=== PATIENT | female | born 1960 | race Two or more races ===

== ENCOUNTER 2024-07-31 01:53 | Emergency (ER) | payer OTHER ==
[~2024-07-31] VITALS: Ht 167.6 cm; Wt 94.3 kg
[2024-07-31 01:53] VITALS: BP 118/46; RESP 20; O2SAT 96
[2024-07-31 02:11] VITALS: PULSE 96
[2024-07-31 02:34] LABS: Basophils # (auto) 0 10 ^3/uL (0-0.2); Basophils % (auto) 0.5 % (0.0-2.0); Eosinophils # (auto) 0.1 10 ^3/uL (0-0.8); Eosinophils % (auto) 1.2 % (0.0-7.0); Hematocrit 40.6 % (36.0-46.0); Hemoglobin 13.8 g/dL (12.2-16.2); Lymphocytes # (auto) 3.8 10 ^3/uL (0.4-5.4); Lymphocytes % (auto) 39.6 % (10.0-50.0); Mean Corpuscular Hemoglobin 33.7 pg (28.0-32.0); Mean Corpuscular Volume 99.2 fL (80.0-100.0); Monocytes # (auto) 0.6 10 ^3/uL (0-1.3); Monocytes % (auto) 6.8 % (0.0-12.0); Neutrophils # (auto) 4.9 10 ^3/uL (1.6-8.6); Neutrophils % (auto) 51.9 % (37.0-80.0); Nucleated Red Blood Cells % 0.1 %; Platelet Count (auto) 312 10^3/uL (140-450); White Blood Cell 9.5 10^3/uL (4.4-10.8)
[2024-07-31 02:46] LABS: Alanine Aminotransferase 12 U/L (7-40); Albumin 4.5 g/dL (3.2-4.8); Alkaline Phosphatase 115 U/L (46-116); Anion Gap 13 (5-15); Bilirubin, Total 0.4 mg/dL (0.2-1.0); Calcium 10.2 mg/dL (8.7-10.4); Chloride 105 mmol/L (98-107); Magnesium 2.2 mg/dL (1.6-2.6); Sodium 138 mmol/L (136-145); Total Protein 7.6 g/dL (5.7-8.2)
[2024-07-31 02:49] LABS: Aspartate Aminotransferase < 8 U/L (13-40); Carbon Dioxide 20 mmol/L (20-31); Glucose 119 mg/dL (74-106)
--- NOTE | 2024-07-31 02:59 | DVH ---
Examination: HWOCT CLINICAL INDICATION: vertigo COMPARISON: None. CONTRAST USED: None. TECHNIQUE: The examination was performed obtaining 5 mm slices without contrast. CT scan was done a ccording to ALARA (As Low as Reasonably Achievable). Multiplanar reconstructions were obtained. FINDINGS: SUPRATENTORIAL BRAIN: Cerebral Hemispheres: Gliotic area in the left temporal lobe. There is no midline shift or mass effect, intra- or extra-axial fluid collections or hemorrhage. Prominent sulcal-gyral pattern and cisternal spaces in both cerebral hemispheres suggestive of cerebr al atrophy, likely age related. Periventricular White Matter/Basal Ganglia: No abnormal areas of altered attenuation within the dale ventricular white matter or basal ganglia. POSTERIOR FOSSA: The brainstem is unremarkable. Small gliotic area in the left cerebellar hemispher e anteromedially. Prominent cerebellar folia suggestive of cerebellar atrophy, likely age related. VENTRICULAR SYSTEM: The ventricular system is normal in size. Ventricular shunt drainage tube noted on the right side traversing right parietal bone, right parietal lobe parenchyma, with its tip in th e body of right lateral ventricle. There is no evidence of hydrocephalus or transependymal flow of c erebrospinal fluid. SKULL BASE AND PARASELLAR REGION: The skull base is normal, with no parasellar masses or abnormaliti es identified. CALVARIUM AND SCALP REGION: Small osteoma of approximate size 9 x 6 mm noted over the outer table of frontal bone on the right side. Hyperostosis frontalis interna bilaterally. Old craniectomy defect noted in occipital bone on the left side. Old left frontal temporoparietal craniotomy defect, along with postoperative changes noted. Please correlate with operative history. PARANASAL SINUSES: No significant inflammatory changes are identified in the visualized paranasal si nuses. IMPRESSION: 1. Gliotic area in the left temporal lobe and a small gliotic area in the left cerebellar hemisphere anteromedially. 2. No evidence of acute large vessel territorial ischemic infarction or intraparenchymal hematoma in current study. 3. Chronic and/or ancillary findings as described above. Advised further evaluation with MRI brain without contrast, if clinically indicated. Electronically Signed 07/31/2024 02:58 Mery Trevizo
[2024-07-31 03:26] LABS: Blood Urea Nitrogen 22 mg/dL (9-23)
--- NOTE | 2024-07-31 03:54 | ED.PDOC ---
HPI (NEURO) HPI Comments A 63 year old female presents to the ED with a chief complaint of dizziness onset 4 days. Daughter states the patient has a past medical history of a brain tumor, was partially removed about 6 years ago. Patient noticed dizziness has worsen, as well as headache, LT sided facial pain. No other symptoms or modifying factors present at this time. Chief Complaint: Dizziness Time Seen by MD: 03:37 Reviewed Notes: Medications, Allergies Information Source: Patient, Relative (Child) Mode of Arrival: Ambulatory Severity: Moderate Headache Severity: Moderate Timing: Days Duration: Since onset Prehospital treatment: None Headache Quality: Sharp Symptoms: Other (dizziness) History of: Other (rah tumor) Associated Signs and Symptoms: Headache Past Medical History Past Medical History (Other): Brain tumor Surgical History (Other): Brain surgery TARGET [employer]TER History: Unknown Family History Family History: Unknown Social History Smoker: Non-Smoker Alcohol: Denies ETOH Use Drugs: Denies Drug Use Lives In: Home Constitutional: denies: chills, diaphoresis, fatigue, fever, malaise, sweats, weakness, others EENTM: denies: blurred vision, double vision, ear bleeding, ear discharge, ear drainage, ear pain, ear ringing, eye pain, eye redness, hearing loss, mouth pain, mouth swelling, nasal discharge, nose bleeding, nose congestion, nose pain, photophobia, tearing, throat pain, throat swelling, voice changes, others Respiratory: denies: cough, hemoptysis, orthopnea, SOB at rest, shortness of breath, SOB with excertion, stridor, wheezing, others Cardiovascular: denies: chest pain, dizzy spells, diaphoresis, Dyspnea on exertion, edema, irregular heart beat, left arm pain, lightheadedness, palpitations, PND, syncope, others Gastrointestinal: denies: abdomen distended, abdominal pain, blood streaked bowels, constipated, diarrhea, dysphagia, difficulty swallowing, hematemesis, melena, nausea, poor appetite, poor fluid intake, rectal bleeding, rectal pain, vomiting, others Genitourinary: denies: abnormal vagina bleeding, burning, dyspareunia, dysuria, flank pain, frequency, hematuria, incontinence, pain, , vagina discharge, urgency, others Neurological: reports: dizziness, headache, others (LT side facial pain); denies: fainting, left sided numbness, left sided weakness, numbness, paresthesia, pre-existing deficit, right sided numbness, right sided weakness, seizure, speech problems, tingling, tremors, weakness Musculoskeletal: denies: back pain, gout, joint pain, joint swelling, muscle pain, muscle stiffness, neck pain, others Integumetry: denies: bruises, change in color, change in hair/nails, dryness, laceration, lesions, lumps, rash, wounds, others Allergic/Immunocompromised: denies: Difficulty Healing, Frequent Infections, Hives, Itching, others Hematologic/Lymphatic: denies: anemia, blood clots, easy bleeding, easy bruising, swollen glands, others Endocrine: denies: excessive hunger, excessive sweating, excessive thirst, excessive urination, flushing, intolerance to cold, intolerance to heat, unexplained weight gain, unexplained weight loss, others Psychiatric: denies: anxiety, bipolar disorder, depression, hopeless, panic disorder, schizophrenia, sleepless, suicidal, others All Other Systems: Reviewed and Negative Physical Exam General Appearance: No Apparent Distress, Normal HEENT: Normal ENT Inspection, Pharynx Normal, TMs Normal Neck: Full Range of Motion, Non-Tender, Normal, Normal Inspection Respiratory: Chest Non-Tender, Lungs Clear, No Accessory Muscle Use, No Respiratory Distress, Normal Breath Sounds Cardiovascular: No Edema, No JVD, No Murmur, No Gallop, Normal Peripheral Pulses, Regular Rate/Rhythm Breast Exam: Deferred Gastrointestinal: No Organomegaly, Non Tender, No Pulsatile Mass, Normal Bowel Sounds, Soft Genitalia: Deferred Pelvic: Deferred Rectal: Deferred Extremities: No calf tenderness, Normal capillary refill, Normal inspection, Normal range of motion, Non-tender, No pedal edema Musculoskeletal : Apperance: Normal Neurologic: Alert, sport internship II-XII nml as Tested, No Motor Deficits, Normal Affect, Normal Mood, No Sensory Deficits Cerebellar Function: Normal Reflexes: Normal Skin: Dry, Normal Color, Warm Lymphatic: No Adenopathy Was a procedure done? Was a procedure done?: No X-Ray, Labs, Meds, VS Vital Signs Date Time Temp Pulse Resp B/P (MAP) Pulse Ox O2 Delivery O2 Flow Rate FiO2 07/31/24 02:11 96 07/31/24 01:53 97.9 108 20 118/46 (70) 96 Lab Test 07/31/24 02:14 Range/Units White Blood Count 9.5 4.4-10.8 10^3/uL Red Blood Count 4.10 4.0-5.20 10^6/uL Hemoglobin 13.8 12.2-16.2 g/dL Hematocrit 40.6 36.0-46.0 % Mean Corpuscular Volume 99.2 80.0-100.0 fL Mean Corpuscular Hemoglobin 33.7 H 28.0-32.0 pg Mean Corpuscular Hemoglobin Concent 34.0 32.0-36.0 g/dL Red Cell Distribution Width 15.0 H 11.8-14.3 % Platelet Count 312 140-450 10^3/uL Mean Platelet Volume 7.8 6.9-10.8 fL Neutrophils (%) (Auto) 51.9 37.0-80.0 % Lymphocytes (%) (Auto) 39.6 10.0-50.0 % Monocytes (%) (Auto) 6.8 0.0-12.0 % Eosinophils (%) (Auto) 1.2 0.0-7.0 % Basophils (%) (Auto) 0.5 0.0-2.0 % Neutrophils # (Auto) 4.9 1.6-8.6 10 ^3/uL Lymphocytes # (Auto) 3.8 0.4-5.4 10 ^3/uL Monocytes # (Auto) 0.6 0-1.3 10 ^3/uL Eosinophils # (Auto) 0.1 0-0.8 10 ^3/uL Basophils # (Auto) 0 0-0.2 10 ^3/uL Nucleated Red Blood Cells 0.1 % Sodium Level 138 136-145 mmol/L Potassium Level 4.0 3.5-5.1 mmol/L Chloride Level 105 98-107 mmol/L Carbon Dioxide Level 20 20-31 mmol/L Anion Gap 13 5-15 Blood Urea Nitrogen 22 9-23 mg/dL Creatinine 1.47 H 0.550-1.02 mg/dL Glomerular Filtration Rate Calc 40 >90 mL/min BUN/Creatinine Ratio 15.0 10.0-20.0 Serum Glucose 119 H 74-106 mg/dL Calcium Level 10.2 8.7-10.4 mg/dL Magnesium Level 2.2 1.6-2.6 mg/dL Total Bilirubin 0.4 0.2-1.0 mg/dL Aspartate Amino Transferase (AST) < 8 L 13-40 U/L Alanine Aminotransferase (ALT) 12 7-40 U/L Alkaline Phosphatase 115 46-116 U/L Troponin I High Sensitivity < 3 L </=34 ng/L Total Protein 7.6 5.7-8.2 g/dL Albumin 4.5 3.2-4.8 g/dL Current Medications Medications (Trade) Dose Ordered Sig/Donta Route Start Time Stop Time Status Last Admin Acetaminophen/ Hydrocodone Bitart ([place] 10/325MG Tab) 1 tab ONCE ONCE PO 07/31/24 03:45 07/31/24 03:46 DC 07/31/24 04:02 Meclizine HCl (Antivert Tablet) 12.5 mg ONCE ONCE PO 07/31/24 03:45 07/31/24 03:46 DC 07/31/24 04:02 Dexamethasone (Decadron Tablet) 6 mg ONCE ONCE PO 07/31/24 03:45 07/31/24 03:46 DC 07/31/24 04:02 [place] [id number] Ph: [phone] DIAGNOSTIC IMAGING Diagnostic Imaging Report : [id number] Signed PATIENT: DAVID BELTRÁNCCT: [id number] UNIT: [id number] : 1960 LOC: ER ROOM / BED: / AGE / SEX: 63 / F ADM STATUS: REG ER SERVICE [id number] ORDERING PHYSICIAN: BRENDA GROVES MD PROCEDURE(s): HWOCT - HEAD WITHOUT CONTRAST REASON: vertigo ORDER NUMBER(s): [id number], ACCESSION NUMBER(s): [id number] Examination: HWOCT CLINICAL INDICATION: vertigo COMPARISON: None. CONTRAST USED: None. TECHNIQUE: The examination was performed obtaining 5 mm slices without contrast. CT scan was done according to ALARA (As Low as Reasonably Achievable). Multiplanar reconstructions were obtained. FINDINGS: SUPRATENTORIAL BRAIN: Cerebral Hemispheres: Gliotic area in the left temporal lobe. There is no midline shift or mass effect, intra- or extra-axial fluid collections or hemorrhage. Prominent sulcal-gyral pattern and cisternal spaces in both cerebral hemispheres suggestive of cerebral atrophy, likely age related. Periventricular White Matter/Basal Ganglia: No abnormal areas of altered attenuation within the periventricular white matter or basal ganglia. POSTERIOR FOSSA: The brainstem is unremarkable. Small gliotic area in the left cerebellar hemisphere anteromedially. Prominent cerebellar folia suggestive of cerebellar atrophy, likely age related. VENTRICULAR SYSTEM: The ventricular system is normal in size. Ventricular shunt drainage tube noted on the right side traversing right parietal bone, right parietal lobe parenchyma, with its tip in the body of right lateral ventricle. There is no evidence of hydrocephalus or transependymal flow of cerebrospinal fluid. SKULL BASE AND PARASELLAR REGION: The skull base is normal, with no parasellar masses or abnormalities identified. CALVARIUM AND SCALP REGION: Small osteoma of approximate size 9 x 6 mm noted over the outer table of frontal bone on the right side. Hyperostosis frontalis interna bilaterally. Old craniectomy defect noted in occipital bone on the left side. Old left frontal temporoparietal craniotomy defect, along with postoperative changes noted. Please correlate with operative history. PARANASAL SINUSES: No significant inflammatory changes are identified in the visualized paranasal sinuses. IMPRESSION: 1. Gliotic area in the left temporal lobe and a small gliotic area in the left cerebellar hemisphere anteromedially. 2. No evidence of acute large vessel territorial ischemic infarction or intraparenchymal hematoma in current study. 3. Chronic and/or ancillary findings as described above. Advised further evaluation with MRI brain without contrast, if clinically indicated. Electronically Signed 07/31/2024 02:58 Mery Trevizo ATED BY: LUCIO IVEY MD DICTATED DATE/TIME: 07/31/24257 SIGNED BY: LUCIO IVEY MD SIGNED DATE/TIME: 07/31/24257 CC: Time of 1ST Reevaluation: 04:07 Reevaluation 1ST: Unchanged Time of 2ND Reevaluation: 04:30 Reevaluation 2ND: Unchanged Patient Education/Counseling: Diagnosis, Treatment, Prognosis Family Education/Counseling: Diagnosis, Treatment, Prognosis Additional Information I reviewed the following notes from patient's past medical encounters: The following tests were ordered, and results were reviewed by me: TROP, CBC, CMP, Magnesium, CT head w/o contrast, EKG Additional Information was gathered from interviewing the following independent historians: daughter I reviewed and agreed with the following test results read by other providers: radiologist I discussed treatment and results with medical personnel and: daughter and patient Departure 1 Departure Time of Disposition: 04:30 (I recommended admission for MRI and neurology consultation and initially with shared decision making patient agreed but then eloped ) Impression: Primary Impression: Dizziness Additional Impression: History of brain tumor Disposition: 07 LEFT AWOL/ELOPED Condition: Serious Discharged With: Self, Relative Critical Care Note Critical Care Time?: No Stability Stability form required: No I personally scribed for BRENDA GROVES MD ([email or web address]) on 07/31/24 at 03:54. Electronically submitted by Maria Fernanda Geller ([email or web address]). I personally scribed for BRENDA GROVES MD ([email or web address]) on 07/31/24 at 03:55. Electronically submitted by Maria Fernanda Geller ([email or web address]). BRENDA GROVES MD Jul 31, 2024 03:54
[2024-07-31] MEDS: DexAMETHasone 4 MG TAB PO ONE (04:02)
[2024-07-31] MEDS: HYDROcodone-ACET 10/325MG TAB PO ONE (04:02)
[2024-07-31] MEDS: MECLIZINE HCL 25 MG TAB PO ONE (04:02)
--- NOTE | 2024-08-01 06:37 | ECG ---
[facility] Test Date: 2024-07-31 Test Time: 02:11:00 Pat Name: DAVID BELTRÁN Department: ER Room: Gender: F Monotype Setter: : 1960 Requested By: BRENDA GROVES Order Number: [id number] Reading MD: Jacky Mims Measurements Intervals [place] Rate: 96 P: 60 ID: [id number] QRS: -1 QRSD: 142 T: -20 QT: 375 QTc: 474 Interpretive Statements Sinus rhythm Right bundle branch block Electronically Signed On 08-01-2024 10:29:44 PST by Jacky Mims Please click the below link to view image of tracing.
== END 2024-07-31 04:39 | disposition left against medical advice (07) ==
LOC: ER 01:53
DX: R51.9 Headache, unspecified (principal); Z85.841 Personal history of malignant neoplasm of brain; Z98.890 Other specified postprocedural states; Z79.899 Other long term (current) drug therapy
CPT/HCPCS: 36415; 70450; 80053; 83735; 84484; 85025; 93005; 99284; J8540; J8597